=== PATIENT | male | born 1935 | race Caucasian/White ===

== ENCOUNTER 2017-05-12 17:00 | Inpatient (IN) ==
[2017-05-12] MEDS ORDERED: ASPIRIN PO STA (17:12)
[2017-05-12] MEDS ORDERED: NITROGLYCERIN 50 MG/D5W 50 MG/250 ML IV.SOLN ONE (17:25)
[2017-05-12] MEDS ORDERED: LASIX ONE (17:26)
[2017-05-12] MEDS ORDERED: LASIX IV ONE (17:30)
[2017-05-12] MEDS ORDERED: NITROGLYCERIN TOP ONE (17:31)
[2017-05-12 17:32] LABS: ALLEN TEST YES; BE -4.2 mmoll (-3.0-3.0); BLOOD TYPE ARTERIAL; DRAW SITE L RADIAL; METHB 0.8 % (0.0-1.5); PCO2(98.6) 38 mmHg (35-45); PO2(98.6) 80 mmHg (60-100); SAMPLE BLOOD; SAO2 96.7 % (95.0-100.0); THB 13.6 g/dL (11.5-17.4); pH(98.6) 7.35 (7.35-7.45)
[2017-05-12 17:34] LABS: MODALITY NRB
--- NOTE | 2017-05-12 17:36 | PROVIDER DOCUMENTATION ---
HPI-Respiratory General - General Chief Complaint: Shortness of Breath Stated Complaint: SOB Time Seen by Provider: 05/12/17 17:12 Source: patient, family Allergies/Adverse Reactions: Patient Allergies Allergy/AdvReac Type Severity Reaction Status Date / Time No Known Allergies Allergy Verified 02/16/17 12:10 Home Medications: Home Medication List Medication Instructions Recorded Confirmed Last Taken Type Atorvastatin Calcium [Lipitor] 10 mg PO DAILY 02/16/17 05/12/17 05/12/17 08:00 History Nitroglycerin Sl [Nitroglycerin] 1 tab SL PRN PRN 02/16/17 05/12/17 05/12/17 08: 00 History Nitroglycerin [Nitroglycerin Patch] 1 each TD DAILY 02/16/17 05/12/17 05/12/17 08:00 History Ranolazine E.r. [Ranexa] 1 tab PO BID 02/16/17 05/12/17 05/12/17 08:00 History Carvedilol [Coreg] 12.5 mg PO BID 05/12/17 05/12/17 05/12/17 08:00 History Cetirizine HCl [Zyrtec] 10 mg PO QHS 05/13/17 05/13/17 05/11/17 21:00 History - History of Present Illness-Resp Nature of Presenting Problem: 81 year old WM presents in moderate/severe respiratory distress, speaking in grunts, pale, RR in the 30-40's. per , pt has been short of breath since Monday night. reports pt has been unable to lay flat at night, sleeping and sitting up. she reports this afternoon it worsened, so she brought him in by POV. denies chest pain, fever, chills, NVD. Quality of Pain: reports: none Severity in ED: reports: moderate, severe Onset/Duration: reports: 3 days ago Timing: reports: still present, constant, getting worse Cough Quality/Degree: reports: no cough Review of Systems - Adult - REVIEW OF SYSTEMS - ADULT Constitutional: reports: no symptoms reported. denies: chills, fever Eyes: reports: no symptoms reported. denies: discharge, blurred vision, double vision Ears, Nose, Mouth & Throat: reports: no symptoms reported. denies: ear discharge, ear pain, nose pain, loose teeth, throat pain, throat swelling Cardiovascular: reports: see HPI, orthopnea, PND Respiratory: reports: see HPI, dyspnea on exertion, shortness of breath, wheezing Gastrointestinal: reports: no symptoms reported. denies: abdominal pain, diarrhea, nausea, vomiting Genitourinary: reports: no symptoms reported. denies: dysuria, hematuria, urgency Musculoskeletal: reports: no symptoms reported. denies: bone pain, joint pain, joint swelling, neck pain Integumentary: reports: no symptoms reported. denies: skin sores/ulcer Neurological: reports: no symptoms reported Psychiatric: reports: no symptoms reported Endocrine: reports: no symptoms reported Hematologic/Lymphatic: reports: no symptoms reported Allergic/Immunologic: reports: no symptoms reported All Other Systems: Reviewed and Negative Past History - Adult - PAST MEDICAL HISTORY-ADULT Review of Records: reports: Old Records Reviewed, Nursing Assessment Review, Medications Reviewed, Social history reviewed & non-contributory. Major Childhood Illnesses: reports: denies history Cardiovascular: reports: CAD, HTN Respiratory: reports: denies history Gastrointestinal: reports: denies history Obstetrical/Gynecological: reports: denies history Genitourinary: reports: denies history Musculoskeletal: reports: denies history Neurological: reports: denies history Endocrine/Immune: reports: denies history Other Conditions: reports: denies history - IMMUNIZATION STATUS Childhood Immunizations: See Nurse Assessment Flu Vaccine: See Nurse Assessment - FAMILY HISTORY Family History: reviewed, not pertinent Physical Exam-General - PHYSICAL EXAM-ADULT Initial Vital Signs Reviewed: Yes - CONSTITUTIONAL General Appearance: appears well, alert, moderate distress, severe distress, anxious, slow to respond. negative: no apparent distress, mild distress - EYES Eyes: pink conjunctivae - HEAD, EARS, NOSE, MOUTH & THROAT HENMT: normocephalic/atraumatic, moist mucous membranes - NECK Neck: non-tender, full range of motion, supple, normal inspection. negative: trachial deviation - RESPIRATORY Respiratory: respiratory distress, decreased breath sounds, accessory muscle use , rales, increased rate. negative: chest non-tender, lungs clear, normal breath sounds, no pleuratic chest pain, no respiratory distress, no accessory muscle use, crackles, rhonchi, stridor, wheezing - CARDIOVASCULAR Cardiovascular: normal peripheral pulses, JVD, tachycardia, gallop/S4, irregularly irregular. negative: regular rate, rhythm, no edema, no JVD (mild JVD), no murmur - GASTROINTESTINAL (ABDOMEN) Abdominal Exam: non tender, soft. negative: distended, guarding, rigid, rebound , tenderness, hepatomegaly, spleenomegaly - MUSCULOSKELETAL Back Exam: normal inspection Extremity: non-tender, pedal edema (+1/+2 pedal edema.). negative: normal inspection, no pedal edema, calf tenderness, swelling, tenderness Peripheral Pulses: radial (R): 3+, radial (L): 3+, dorsalis-pedis (R): 3+, dorsalis-pedis (L): 3+ - SKIN Integumentary: normal color, normal turgor, warm/dry - NEUROLOGIC Neurologic: grossly normal, no motor/sensory deficits - PSYCHIATRIC Psych/Mental Status: oriented x 3, anxious Progress - PLAN OF CARE/RESULTS Progress/Plan/Lab Results: Orders Category Date Time Status Admit - [facility] Routine AdmDCTranf 05/12/17 20:35 Ordered Activity - Up with Assistance ORDERED Care 05/12/17 20:35 Active Apply Mechanical Device [QM] ORDERED Care 05/12/17 20:35 Completed Cardiac Monitoring DIRECTED Care 05/12/17 17:13 Completed Daily Weights 0500 Care 05/12/17 20:35 Active Swan Cath Insertion ORDERED Care 05/12/17 17:30 Completed Intake and Output-Strict Q 8-HR ASSESS Care 05/12/17 20:35 Active Oxygen Therapy- ED Nursing DIRECTED Care 05/12/17 17:13 Completed Resuscitation Status Routine Care 05/12/17 18:18 Ordered Saline Loc DIRECTED Care 05/12/17 20:35 Completed Saline Loc NOW Care 05/12/17 17:13 Completed Vital Signs Order Q 8-HR ASSESS Care 05/12/17 20:35 Hold Z-Document. for Tele Applied ORDERED Care 05/12/17 20:35 Completed Heart Healthy Diet Diet 05/12/17 18:20 Active CHEST-PORTABLE [RAD] Routine Exams 05/13/17 08:00 Completed CHEST-PORTABLE [RAD] Stat Exams 05/12/17 17:13 Completed ABG [RESP] Routine Lab 05/12/17 17:27 Completed BASIC METABOLIC PANEL [CHEM] Routine Lab 05/13/17 05:20 Completed BLOOD CULTURE [BLDCUL] Stat Lab 05/12/17 18:33 Results CBC WITH DIFF [HEME] Routine Lab 05/13/17 05:20 Completed CBC WITH ELECTRONIC DIFF [HEME] Stat Lab 05/12/17 18:33 Completed CK PROFILE [SP CHEM] Q8H Lab 05/12/17 21:30 Completed CK PROFILE [SP CHEM] Q8H Lab 05/13/17 05:20 Completed CK PROFILE [SP CHEM] Q8H Lab 05/13/17 12:46 Completed CK PROFILE [SP CHEM] Stat Lab 05/12/17 18:33 Completed COMPREHENSIVE METABOLIC PANEL [CHEM] Stat Lab 05/12/17 18:33 Completed D-DIMER [CHEM] Stat Lab 05/12/17 18:33 Completed LACTATE, PLASMA [CHEM] Stat Lab 05/12/17 18:33 Completed MAGNESIUM [CHEM] Routine Lab 05/13/17 05:20 Completed MAGNESIUM [CHEM] Stat Lab 05/12/17 18:33 Completed PRO B-NATRIURETIC PEPTIDE Routine Lab 05/13/17 05:20 Completed PRO B-NATRIURETIC PEPTIDE Stat Lab 05/12/17 18:33 Completed PROTIME WITH INR [COAG] Stat Lab 05/12/17 18:33 Completed PTT [COAG] Stat Lab 05/12/17 18:33 Completed TROPONIN T Q8HR Lab 05/12/17 21:30 Completed TROPONIN T Q8HR Lab 05/13/17 05:20 Completed TROPONIN T Q8HR Lab 05/13/17 12:46 Completed TROPONIN T Stat Lab 05/12/17 18:33 Completed TSH Routine Lab 05/13/17 05:20 Completed ATORVAstatin [Lipitor] Med 05/13/17 09:00 Active 10 mg PO DAILY Acetaminophen [Tylenol] Med 05/12/17 20:35 Active 650 mg PO Q6H PRN PRN Aspirin Med 05/12/17 17:12 Discontinued 325 mg PO STAT STA Cyanocobalamin/FA/Pyridoxine [Foltx] Med 05/13/17 09:00 Active 1 each PO DAILY Furosemide [Lasix] Med 05/12/17 17:26 Discontinued 100 mg .ROUTE .STK-MED ONE Furosemide [Lasix] Med 05/12/17 17:30 Discontinued 100 mg IV NOW ONE Furosemide [Lasix] Med 05/13/17 01:30 Discontinued 80 mg IV Q8H Hydralazine [Apresoline] Med 05/12/17 18:26 Active 10 mg IV Q4H PRN PRN LISINOpril [Prinivil] Med 05/12/17 21:00 Discontinued 20 mg PO BID Nitroglycerin Med 05/12/17 17:31 Discontinued 2 inch TOP NOW ONE Nitroglycerin 50 mg/D5w Med 05/12/17 17:25 Discontinued 50 mg in 250 ml .ROUTE As Directed Nitroglycerin Sl [Nitroglycerin] Med 05/12/17 20:35 Active 0.4 mg SL PRN PRN Nitroglycerin [Nitroglycerin 0.1MG/Hr Patch] Med 05/13/17 09:00 Discontinued 1 each TD DAILY Ranolazine E.r. [Ranexa] Med 05/12/17 21:00 Active 500 mg PO BID Oxygen Device Routine Oth 05/12/17 20:35 Completed Telemetry [OM.EQ] Routine Oth 05/12/17 20:35 Active Echo Spec/Color Dop W/O Contra Routine Ther 05/13/17 08:00 Completed Transfer/Admit Order [TRANSFER] Routine Transfer 05/12/17 18:17 Completed Result Diagrams: 05/16/17 04:56 05/16/17 04:56 - XRAY 1 XRAY Study: Chest Impression: Abnormal (pulmonary edema per Dr. Madison) - CONSULTS/PCP/HOSPITALIST Notification #1 *Consult/PCP/Hospitalist*: Dr. Levy Time Discussed: 17:42 Reason/Comments: ICU Consult Disposition: Will see in ED, Admit - CHANGE OF SHIFT REPORT (ED Provider) Report Given and Care Transferred to:: Dr. Montalvo Time of Transfer: 18:14 Items Pending: Physician Consult/Arrival Departure - Departure Date of Disposition Decision: 05/12/17 Time of Disposition Decision: 17:32 DIAGNOSIS: Heart failure Disposition: ADMITTED INPATIENT 09 Certified Medical Emergency: Emergent Condition: Stable - Critical Care Note This patient required my direct & personal management of CC.: Yes Attestation - Physician/ SAUL Attestation Patient care was provided by Advanced Practice Provider:: Yes Advanced Practice Provider:: Pablo Victoria Advanced Practice Provider documentation review:: The Mid-level provider documentation, treatment plan and medical decision making was reviewed by the physician who agrees with all treatment and medical decision making by the MLP. The physician spent face to face time with patient:: Yes ([id number] Dr. Madison at bedside) Advanced Practice Provider documentation review:: Supervising physician onsite and consulted in the evaluation and care of this patient. The physician did have a face to face encounter with the patient.
--- NOTE | 2017-05-12 17:52 | Diag Imaging Result Doc PS360 ---
EXAM: CHEST-PORTABLE HISTORY: shortness of breath TECHNIQUE: AP portable erect at 1720 COMMENT: There is extensive interstitial and some alveolar opacity particularly in the perihilar regions bilaterally. There is blunting of the costophrenic angles. There are no previous studies. IMPRESSION: Florid pulmonary edema with small pleural effusions. Cardiomegaly. Electronically signed by Kasi Burciaga 05/12/2017 5:49 PM
[2017-05-12] MEDS ORDERED: APRESOLINE IV PRN (18:26)
[2017-05-12 18:47] LABS: BASO% 0.2 % (0.0-0.8); EOS# 0.13 X1000 (0.0-0.7); EOS% 0.8 % (0.0-10.0); HEMATOCRIT 37.5 % (42.0-52.0); HEMOGLOBIN 12.4 g/dL (14.0-18.0); LYMPH# 0.96 X1000 (1.2-3.4); LYMPH% 5.8 % (20.5-51.1); MANUAL DIFF NEEDED? NO; MCH 32.5 PG (27-31); MCHC 33.1 g/dL (33-37); MCV 98.4 FL (81-99); MONO# 1.04 X1000 (0.11-0.59); MONO% 6.3 % (1.7-9.3); MPV 8.9 FL (7.4-10.4); NEUT% 86.9 % (42.2-75.2); PLT 317 X1000 (130-400); RBC 3.81 XMIL (4.7-6.1)
[2017-05-12 18:54] LABS: INR 1.13; PTT 25.9 Seconds (22.0-36.0)
[2017-05-12 19:15] LABS: AGAP 15; ALBUMIN 3.9 g/dL (3.5-5.0); ALKALINE PHOSPHATASE 102 U/L (32-122); BUN 20 mg/dL (8-22); CALCIUM 8.9 mg/dL (8.8-10.2); CHLORIDE 100 mmol/L (98-107); CK PROFILE 169 U/L (24-204); COSMO 287; GOT 39 U/L (10-34); GPT 20 U/L (10-44); MAGNESIUM 1.8 mg/dL (1.5-2.7); SODIUM 140 mmol/L (136-145); TCO2 25 mmol/L (25-35); TOTAL BILIRUBIN 0.72 mg/dL (0.20-1.00); TOTAL PROTEIN 6.4 g/dL (6.3-8.3)
[2017-05-12] MEDS ORDERED: NITROGLYCERIN SL PRN (20:35)
[2017-05-12] MEDS ORDERED: TYLENOL PO PRN (20:35)
[2017-05-12] MEDS ORDERED: COREG CR PO SCH (21:00)
[2017-05-12] MEDS: RANEXA PO SCH (21:58)
[2017-05-12] MEDS: PRINIVIL PO SCH (21:59)
[2017-05-12] MEDS: COREG PO SCH (21:59)
[2017-05-12 22:43] LABS: CK INDEX 6.9 (0.0-2.5); CK-MB 33.94 ng/mL (0.0-5.0)
[2017-05-12] MEDS: LOVENOX SUBQ SCH (22:59)
[2017-05-13] MEDS: LASIX IV SCH ×4 (01:36→23:47)
[2017-05-13 06:01] LABS: MANUAL DIFF NEEDED? NO
[2017-05-13 06:04] LABS: BASO% 0.3 % (0.0-0.8); EOS# 0.09 X1000 (0.0-0.7); EOS% 0.6 % (0.0-10.0); HEMATOCRIT 37.3 % (42.0-52.0); HEMOGLOBIN 12.6 g/dL (14.0-18.0); IMM GRAN# 0.13 X1000 (0.0-0.04); IMM GRAN% 0.8 % (0.0-0.5); LYMPH# 1.52 X1000 (1.2-3.4); LYMPH% 9.6 % (20.5-51.1); MCH 32.2 PG (27-31); MCHC 33.8 g/dL (33-37); MCV 95.4 FL (81-99); MONO# 1.48 X1000 (0.11-0.59); MONO% 9.4 % (1.7-9.3); MPV 9.3 FL (7.4-10.4); NEUT% 79.3 % (42.2-75.2); PLT 315 X1000 (130-400); RBC 3.91 XMIL (4.7-6.1)
[2017-05-13 06:37] LABS: AGAP 14; BUN 18 mg/dL (8-22); CALCIUM 9.2 mg/dL (8.8-10.2); CHLORIDE 98 mmol/L (98-107); COSMO 286; MAGNESIUM 1.6 mg/dL (1.5-2.7); SODIUM 142 mmol/L (136-145); TCO2 30 mmol/L (25-35)
[2017-05-13 06:49] LABS: CK INDEX 6.5 (0.0-2.5); CK-MB 20.22 ng/mL (0.0-5.0)
--- NOTE | 2017-05-13 07:12 | Diag Imaging Result Doc PS360 ---
EXAM: CHEST-PORTABLE HISTORY: Heart failure TECHNIQUE: AP portable at 0500 COMMENT: There is bilateral interstitial and alveolar pulmonary edema. Considering differences in inspiration this has not changed significantly since the previous study of 05/12/2017. There may be small pleural effusions. IMPRESSION: Pulmonary edema. Electronically signed by Kasi Burciaga 05/13/2017 7:10 AM
[2017-05-13] MEDS ORDERED: NITROGLYCERIN 0.1MG/HR PATCH TD SCH (09:00)
[2017-05-13] MEDS: ROCEPHIN 1 GM/NS 1 GM/50 ML IVPB IV SCH (09:25)
[2017-05-13] MEDS: FOLTX PO SCH (09:25)
[2017-05-13] MEDS: RANEXA PO SCH ×2 (09:25→20:26)
[2017-05-13] MEDS: PRINIVIL PO SCH (09:25)
[2017-05-13] MEDS: KLOR-CON PO SCH ×2 (09:25→20:26)
[2017-05-13] MEDS: LIPITOR PO SCH (09:25)
[2017-05-13] MEDS: COREG PO SCH ×2 (09:25→20:27)
--- NOTE | 2017-05-13 09:42 | HISTORY AND PHYSICAL ---
HISTORY OF PRESENT ILLNESS: Mr. Polanco was admitted on 05/12/2017 in the evening. He stated that for a couple of days he has noticed increased shortness of breath and now was having more trouble and struggling to breathe. He came to the emergency room where, indeed, he had significant hypoxia, and he was put on BiPAP. Blood gases on arrival: pH was 7.35, pCO2 of 38, PO2 was 80, but that was after he is already on 100% FiO2. He is using extra thoracic muscles for breathing difficulty, moving air, and significant orthopnea which he has had for a couple of days. He denies any specific chest pain. He has had chronic angina with exertion. It usually expresses itself between the shoulder blades. PAST MEDICAL HISTORY: 1. Coronary artery disease. He started having chest pain and shortness of breath with exertion back in 1977. He underwent a stress test and eventually had a heart catheterization done in [place] and was treated at [place] and ended up having a 1 vessel to the LAD, I believe a venous graft in 1977. He quit smoking at that time. Prior to that, he smoked quite a bit. He did pretty well until the mid , and he started having chest pain, intrascapular pain again and it felt to be consistent with angina. He had another heart catheterization. They told him he had small vessel disease and needed to treat him medically. I think he has had another heart catheterization in the last 10 years, and I think Dr. Kaur performed that and, again, I think there was no surgical therapy available and, so, he has had stable angina chest pain with exertion predictable since that time. 2. Years ago, he had a duodenal ulcer. He underwent a Billroth II and, since that time, he has had postoperative dumping syndrome which we tried various things with very little relief. 3. I believe he has had his gallbladder out. ALLERGIES: No known drug allergies. FAMILY HISTORY: His father, I think, had laryngeal cancer. REVIEW OF SYSTEMS: No weight gain or loss. No fever or chills.HEENT: Unremarkable. Respiratory: Increased work of breathing as above. Increased orthopnea. Very uncomfortable. Cardiovascular: As above. Gastrointestinal and genitourinary: No gross hematuria or dysuria. Musculoskeletal/Neurologic: No focal complaints. Oncologic/hematologic: No significant history other than postoperative dumping syndrome. PHYSICAL EXAMINATION: GENERAL: Well-developed, well-nourished, white male. VITAL SIGNS: Temperature 96.0 degrees, pulse 76, respirations 22, blood pressure 140/76. LUNGS: Decreased breath sounds lower halves. Rales at the margin. Soft S3 appreciated. Prolonged expiratory phase even at this point. He is on BiPAP. CARDIOVASCULAR: Regular rate without murmur or S3. ABDOMEN: Soft. SKIN: Warm and dry. LABORATORY DATA: White count 16,540. Hematocrit 37, platelet count 312,000. Sodium 140, potassium 4.0, chloride 100, bicarb 25. BUN 20, creatinine 1.1. Magnesium 1.8. CPK initially was 169. Troponin was 0.240. ProBNP 4359. PT was 12. PTT was 25. Blood gas: pH was 7.35, pCO2 of 38, PO2 80. Lactate level was 4.0. Chest x-ray: pulmonary edema with small pleural effusions. Cardiomegaly appreciated. ASSESSMENT AND PLAN: 1. Acute congestive heart failure. Suspect related to increased afterload and possible underlying cardiac ischemia. We have given him some Lasix. We will continue to diurese him. We will add VIKKI inhibitor to his regimen. We will check serial cardiac enzymes. This may be a myocardial mismatch oxygen supply and mismatch. I would like to get Cardiology involved as well and put him on Lovenox for now. He is already on nitrates and beta blockade and aspirin. 2. History of coronary artery disease, as above. Small vessel disease by report. I think we will be left to try and adjust his medication and adjust his pre and post load and maximize his medical therapy. 3. 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 4. Note: He complained about the pneumatic stockings causing some muscle spasm, so I will change him to regular. I also note he has got an elevated white count. He did have a little bit of fever, so, I am going to cover him for possible respiratory infection. I do not see this radiographically but I will put him on Rocephin 1 g daily. cc: Olivier Levy MD
--- NOTE | 2017-05-13 09:49 | PROGRESS NOTE ---
DATE: 05/13/2017 SUBJECTIVE: He is breathing better, sitting up in a chair. He is on nasal cannula at the present time, but he is able to come off BiPAP. He denies any specific chest pain, but he said he was hurting so bad last night that he had trouble breathing and he is not sure, but he is much more comfortable. He did have muscle spasm in his legs, and I think that is from the pneumatic stockings. They were very uncomfortable. OBJECTIVE: Vital Signs: His temperature was 100.2 degrees, pulse 80, respirations 20, blood pressure 132/67. HEENT: Pupils were equal, round. Lungs are clear in all lung pickard. Cardiovascular: Regular rhythm and rate without murmur or S3. Abdomen is soft, nontender, nondistended. Positive bowel sounds. No hepatosplenomegaly. Extremities without clubbing, cyanosis, or edema. He has a venectomy scar on the right medial lower leg. ASSESSMENT AND PLAN: 1. Underlying coronary artery disease. Troponin elevated. Nonspecific ST-segment changes in lateral inferior leads and suspect ischemic cardiomyopathy. He seems to be responding to diuresis. We will continue the Lasix, supplement his potassium. His magnesium looks good. His renal function is good. 2. Underlying coronary artery disease, aware. 3. Status post Billroth-II with dumping syndrome. I have him on a healthy heart diet. 4. Muscle cramps. We will stop his pneumatic stockings. cc: Olivier Levy MD
[2017-05-13] MEDS: MAG-OX PO SCH ×2 (10:00→20:27)
[2017-05-13] MEDS: LOVENOX SUBQ SCH ×2 (10:01→20:25)
[2017-05-13] MEDS: ALDACTONE PO SCH (11:58)
[2017-05-13] MEDS: NITROGLYCERIN TOP SCH ×3 (11:58→23:47)
[2017-05-13] MEDS: CAPOTEN PO SCH ×3 (11:58→20:27)
[2017-05-13] MEDS: NATRECOR 1.5 MG in NS 250 ML IV SCH (12:00)
--- NOTE | 2017-05-13 13:06 | CONSULTATION ---
DATE OF CONSULTATION: 05/13/2017 REQUESTING PHYSICIAN: Olivier Levy MD. REASON FOR CONSULTATION: Shortness of breath, myocardial infarction . HISTORY: Mr. Polanco is a pleasant 81-year-old male patient of Dr. Levy who normally follows with Dr. Lei Soto at [facility] in [place]. The patient says that for the past several months he has noticed progressive weakness and loss of stamina. He does have a pattern of stable angina pectoris. For the past 3 or 4 days, he has noted increasing exertional dyspnea and on Monday he got to the point where he felt very short of breath and called for help, and he was instructed to come to the emergency room. He was seen in the ER at about 5:13 p.m. A chest x -ray was done and showed florid pulmonary edema. Blood work at that time showed a proBNP level of 4359, which subsequently has risen up to 6327. His initial cardiac enzymes showed CK 169. Subsequently, the CK went up to 489 and then to 313 units. His CK MB fraction initially was negative, then had risen to 33.94 ng/mL, and then the last one was 20.22 ng/mL. His troponin levels were initially 0.240, subsequently 2.0, and then 2.210. His EKG at the time of initial encounter had shown sinus rhythm with diffuse nonspecific ST-T abnormalities. Lots of artifacts were noted on the 1st EKG. The 2nd EKG at 10: 34 p.m. showed sinus rhythm with nonspecific ST-T changes in the lateral leads that could be ischemic. The 3rd EKG done at 6:12 this morning also showed sinus rhythm with diffuse ST depression in lateral leads V4-V6. The patient has been given Lasix. He is breathing more comfortably. He is feeling somewhat better. PAST MEDICAL HISTORY: Positive for severe coronary heart disease. He had coronary bypass surgery x1 in 1977 at [facility]. He has been followed over the course of many years by Dr. Levy and also his vacuum form operator at the [facility] in [place]. At some point I was involved in his care about 10 years ago. They asked me to do a heart catheterization that showed that he had severe 3-vessel disease with a patent vein graft to the LAD and multiple stenoses in the circumflex, right coronary artery, and mid LAD. Medical therapy was recommended at that time. The patient says that at about 5 years ago they did a followup catheterization in [place] and they also recommended medical therapy. He has a previous history of peptic ulcer and he has had partial gastrectomy in the past with a Billroth II type of operation. He has had hyperlipidemia and hypertension. 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 Alexander has performed some reconstructive surgery there recently. The patient was just seen by his vacuum form operator, Dr. Lei Soto, about a week ago and he was found in a stable condition at that time. PAST SURGICAL HISTORY: As mentioned, bypass 1 time in 1977 and gastric surgery. FAMILY HISTORY: Noncontributory. HOME MEDICINES: 1. Zyrtec 10 mg at bedtime. 2. Carvedilol 12.5 twice a day. 3. Ranexa 1 tablet twice a day. 4. Atorvastatin 10 daily. ALLERGIES: Negative, REVIEW OF SYSTEMS: Progressive fatigue, loss of stamina. His chronic angina pectoris has not changed very much. PHYSICAL EXAMINATION: VITAL SIGNS: Today, blood pressure 119/59, temperature 98.4, pulse 78, respirations 20. GENERAL: He is awake, alert, in no distress. HEENT/NECK: Slightly prominent jugular veins. There are no cervical bruits. CHEST: Diminished breath sounds at the bases with some crepitations bilaterally. HEART: Sounds are regular and rhythmic. There is an apical systolic murmur of 1-2 over 6. Questionable 4th heart sound. ABDOMEN: Nontender. No hepatomegaly noted. There is a scar of sternotomy in the chest. EXTREMITIES: Palpable pulses bilaterally with trace ankle edema. NEUROLOGIC: Follows commands. Moves all 4 extremities. Cranial nerves normal. LABORATORY AND IMAGING: Echocardiogram has been done and the results are pending. IMPRESSIONS: 1. Patient presented with sudden onset of severe dyspnea with abnormal EKG, elevated cardiac enzymes, abnormal chest x-ray suggesting pulmonary edema, and a non-ST myocardial infarction . 2. Severe coronary heart disease, s/p CABG with multivessel disease diagnosed several years ago, on medical therapy. 3. Chronic angina pectoris pattern, functional class III. 4. History of peptic ulcer in the remote past. 5. Acute systolic congestive heart failure. RECOMMENDATIONS: 1. At this point in time, we will offer supportive care with Lovenox, aspirin, and Plavix. We will give him nitro paste, low-dose beta afsaneh, low-dose VIKKI inhibitors. To stabilize the situation, I may want to add spironolactone because his potassium is low. Further advice will depend on his clinical course. We will try IV Natrecor to improve diuresis. 2. I believe this patient may require a followup heart catheterization to make sure that his vein graft to the left anterior descending is still patent. 3. We will try to get records from [place]. Thank you again for the opportunity to participate in his evaluation. Best regards, cc: MD Olivier Fine MD [email or web address]
--- NOTE | 2017-05-13 18:12 | ECHO REPORT ---
ORDER DATE: 05/13/2017 INTERPRETING PHYSICIAN: Dr. Kaur REQUESTING PHYSICIAN: CLINICAL INDICATIONS: An 81-year-old male with myocardial infarction, coronary heart disease, congestive heart failure. M-MODE MEASUREMENTS: Right ventricle: 2.9 cm. Left ventricle end diastole: 5.0 cm. Left ventricle end systole: 3.8 cm. Posterior wall: 1.0 cm. Interventricular septum: 1.0 cm. Left atrium: 4.7 cm. Aortic root: 3.4 cm. SUMMARY OF 2-DIMENSIONAL IMAGING: The study was somewhat difficult. The left ventricular chamber appears to be moderately enlarged. The global ejection fraction appears to be epqx-bx-xkbsnsdjrt impaired. Ejection fraction is estimated to be in the range of 40-45%. There is severe impairment of the inferior wall as well as the posterior lateral wall. The basal interventricular septum is also compromised. That would suggest ischemia or infarction within the territory of either a dominant right coronary artery or a dominant circumflex. The aortic valve shows sclerosis of the cusp. Color flow mapping indicates a uwwh-th-prilgxxj degree of regurgitation. The left atrium is moderately dilated. The tricuspid valve shows no significant regurgitation. The inferior vena cava is not dilated. Pulmonary pressure is probably normal. The pulmonic valve looks normal with a mild degree of regurgitation. The mitral valve shows a omhk-gw-pckkctaz degree of regurgitation. Pulse wave Doppler of mitral inflow is normal. Tissue Doppler of septal and lateral mitral annulus averages 7.5 cm per second. There is no significant diastolic dysfunction. Pulmonary venous flow is normal. IMPRESSION: In summary, this study shows: 1. Moderately enlarged left ventricle with dpkk-om-pxoajfvt impairment of systolic function. Ejection fraction 40-45% with significant impairment of the inferior wall and to a lesser degree the posterior lateral segment. That is consistent with coronary ischemic disease. 2. Lnah-dr-tepxcwhv degree of mitral and aortic regurgitation. 3. No definite diastolic dysfunction. 4. Pulmonary pressure appears to be grossly within normal range. A left pleural effusion was noted. Clinical correlation recommended. cc: MD Olivier Fine MD
[2017-05-13] MEDS: POTASSIUM CHLORIDE 20% LIQUID PO SCH (20:27)
[2017-05-14] MEDS: LOVENOX SUBQ SCH ×3 (00:45→20:10)
[2017-05-14] MEDS: NITROGLYCERIN TOP SCH ×4 (04:54→23:25)
[2017-05-14] MEDS: CAPOTEN PO SCH ×3 (04:54→20:08)
[2017-05-14 06:09] LABS: AGAP 16; BUN 21 mg/dL (8-22); CALCIUM 9.1 mg/dL (8.8-10.2); CHLORIDE 97 mmol/L (98-107); COSMO 291; MAGNESIUM 1.8 mg/dL (1.5-2.7); POTASSIUM 3.4 mmol/L (3.5-5.1); SODIUM 144 mmol/L (136-145); TCO2 31 mmol/L (25-35)
--- NOTE | 2017-05-14 07:06 | Diag Imaging Result Doc PS360 ---
EXAM: CHEST-PORTABLE HISTORY: CHF TECHNIQUE: AP portable at 0500 COMMENT: There are bilateral pleural effusions. There is cardiomegaly. There is interstitial and alveolar pulmonary edema. The inspiration is less optimal than on 05/13/2017. Otherwise has been no significant change. IMPRESSION: Pulmonary edema pleural effusions and cardiomegaly. Electronically signed by Kasi Burciaga 05/14/2017 7:04 AM
--- NOTE | 2017-05-14 08:17 | PROGRESS NOTE ---
DATE: 05/14/2017 SUBJECTIVE: Mr. Polanco is feeling better. He did not sleep much last night but he did not have any more of his leg cramping. Bowels had moved yesterday. Breathing is better. No chest pain. PHYSICAL EXAMINATION: Vital Signs: Temperature 98 degrees, pulse 78, respirations 18, blood pressure 110/63. Lungs: Clear anterolateral. Cardiovascular Examination: Regular rhythm and rate without murmur or S3. Abdomen: Soft. Skin: Warm and dry. No pedal edema. Is and Os: Urine output is 4.5 L. LAB: White count 15,810, hematocrit 37, platelet count 315,000. Electrolytes: Sodium 144, potassium 3.4, chloride 97, BUN is 21, creatinine 1.1. His troponin has gone down to 0.78. Chest x-ray, pulmonary edema, pleural effusions, and cardiomegaly, appears to have improved. ASSESSMENT AND PLAN: 1. Congestive heart failure, pulmonary edema, improving clinically and I think improving radiographically as well. Continue to diurese. He has VIKKI inhibitor. He was already on a beta blockade with Coreg low dose and we have him on Lovenox. 2. Non Q-wave myocardial infarction. He is on nitroglycerin. He has low-dose beta blockade, on aspirin, and he is on Lovenox. Afterload, preload look to be optimal. He is diuresing well. Serum creatinine is 1.1. Electrolytes, potassium a little low. Magnesium is 1.8. We will continue to supplement the potassium. May give him an extra dose of intravenous potassium today. 3. Swan catheter in place. We will take that out tomorrow. He is just not able to get up and run to the bathroom. cc: Olivier Levy MD
[2017-05-14] MEDS: LIPITOR PO SCH (08:38)
[2017-05-14] MEDS: COREG PO SCH ×2 (08:38→20:08)
[2017-05-14] MEDS: RANEXA PO SCH ×2 (08:38→20:08)
[2017-05-14] MEDS: POTASSIUM CHLORIDE 20% LIQUID PO SCH ×2 (08:38→20:06)
[2017-05-14] MEDS: KLOR-CON PO SCH ×2 (08:38→20:06)
[2017-05-14] MEDS: POTASSIUM CHLORIDE 20 MEQ/SWI 20 MEQ/100 ML IVPB IV SCH ×2 (08:38→09:40)
[2017-05-14] MEDS: PLAVIX PO SCH (08:38)
[2017-05-14] MEDS: ALDACTONE PO SCH (08:38)
[2017-05-14] MEDS: MAG-OX PO SCH ×2 (08:38→20:06)
[2017-05-14] MEDS: ASPIRIN PO SCH (08:38)
[2017-05-14] MEDS: FOLTX PO SCH (08:38)
[2017-05-14] MEDS: ROCEPHIN 1 GM/NS 1 GM/50 ML IVPB IV SCH (08:44)
[2017-05-14] MEDS: LASIX IV SCH ×2 (10:24→23:25)
--- NOTE | 2017-05-14 13:17 | PROGRESS NOTE ---
DATE: 05/14/2017 CHIEF COMPLAINT: Shortness of breath. SUBJECTIVE: Mr. Polanco is breathing more comfortably today. He has not had any chest pain. Overall he feels that he has improved. OBJECTIVE: His blood pressure today is 95/52, temperature 97.4, pulse 73, respirations 16. He is eating lunch, sitting upright, in no distress. HEENT is unremarkable. Chest: Diminished breath sounds at bases. There is some crepitans bilaterally. Heart sounds are regular and rhythmic. I do not hear any gallop or murmur. Abdomen: Nontender. Extremities: No edema. Pulses are diminished. Neurologic: Follows commands. Cranial nerves are normal. DIAGNOSTIC DATA: Today, sodium is 144, potassium 3.4, BUN is 21, creatinine 1.1 , magnesium is 1.8. His CK has come down to 71. Troponin has also come down to 0.78. His EKG shows no acute ischemic changes, sinus rhythm. IMPRESSION: 1. The patient presented with a aqy-JF-qkojzffkx myocardial infarction and acute congestive heart failure, systolic. This is improving clinically on present medicines. 2. History of prior coronary bypass surgery. severe multivessel coronary artery disease. 3. History of peptic ulcer. RECOMMENDATIONS: At this point in time, I would suggest to continue all present therapies as outlined. I would continue low dose beta afsaneh, low dose VIKKI inhibitor, optimize his magnesium and potassium as needed. We will discuss with him and the family what else to do once he is really in a very stable situation. cc: MD Olivier Fine MD MTDD
[2017-05-14] MEDS: NATRECOR 1.5 MG in NS 250 ML IV SCH (14:06)
[2017-05-14] MEDS: ZYRTEC PO SCH (23:25)
--- NOTE | 2017-05-15 06:01 | EKG Report ---
Test Performed on : 05/12/2017 5:06:00 PM Test Reason : Re-Ordered/CP Blood Pressure : / mmHG Vent. Rate : 126 BPM Atrial Rate : 125 BPM P-R Int : 000 ms QRS Dur : 078 ms QT Int : 298 ms P-R-T Axes : 000 065 113 degrees QTc Int : 431 ms Accelerated Junctional rhythm. ST \T\ T wave abnormality, consider lateral ischemia Abnormal ECG No previous ECGs available Unconfirmed Result
--- NOTE | 2017-05-15 06:07 | EKG Report ---
Test Performed on : 05/14/2017 05:51:37 AM Test Reason : ACUTE NON ST [place] Blood Pressure : / mmHG Vent. Rate : 080 BPM Atrial Rate : 080 BPM P-R Int : 154 ms QRS Dur : 074 ms QT Int : 384 ms P-R-T Axes : 025 -07 -43 degrees QTc Int : 442 ms Normal sinus rhythm. Possible Left atrial enlargement Left ventricular hypertrophy with repolarization abnormality Abnormal ECG When compared with ECG of 13-MAY-2017 06:12, (Unconfirmed) Nonspecific ST and T wave abnormality Inferior leads Nonspecific ST depression lateral leads Confirmed by Micha Briceño DO ([id number]) on 05/18/2017 6:53:45 AM
--- NOTE | 2017-05-15 06:08 | EKG Report ---
Test Performed on : 05/12/2017 10:34:56 PM Test Reason : Re-Ordered/CP Blood Pressure : / mmHG Vent. Rate : 092 BPM Atrial Rate : 092 BPM P-R Int : 222 ms QRS Dur : 076 ms QT Int : 334 ms P-R-T Axes : 027 015 270 degrees QTc Int : 413 ms Sinus rhythm. with 1st degree AV block. Possible Left atrial enlargement ST \T\ T wave abnormality, consider lateral ischemia Abnormal ECG When compared with ECG of 12-MAY-2017 17:29, (Unconfirmed) Previous ECG has undetermined rhythm, needs review Confirmed by Micha Briceño DO ([id number]) on 05/16/2017 7:11:45 AM
[2017-05-15] MEDS: CAPOTEN PO SCH ×3 (06:26→20:58)
--- NOTE | 2017-05-15 06:26 | EKG Report ---
Test Performed on : 05/13/2017 06:12:32 AM Test Reason : Increased troponin levels(Repeat) Blood Pressure : / mmHG Vent. Rate : 084 BPM Atrial Rate : 084 BPM P-R Int : 162 ms QRS Dur : 076 ms QT Int : 352 ms P-R-T Axes : 021 011 153 degrees QTc Int : 415 ms Normal sinus rhythm. Possible Left atrial enlargement ST \T\ T wave abnormality, consider lateral ischemia Abnormal ECG When compared with ECG of 12-MAY-2017 22:34, (Unconfirmed) NM interval has decreased Inverted T waves have replaced nonspecific T wave abnormality in Anterior leads Nonspecific ST depression are no longer evident in high-lateral leads 1 and AVL Confirmed by Micha Briceño DO ([id number]) on 05/16/2017 7:14:14 AM
[2017-05-15] MEDS: NITROGLYCERIN TOP SCH ×4 (06:27→22:12)
--- NOTE | 2017-05-15 07:27 | EKG Report ---
Test Performed on : 05/15/2017 07:09:54 AM Test Reason : ACUTE NON ST [place] Blood Pressure : / mmHG Vent. Rate : 085 BPM Atrial Rate : 085 BPM P-R Int : 148 ms QRS Dur : 076 ms QT Int : 400 ms P-R-T Axes : 027 -04 111 degrees QTc Int : 476 ms Normal sinus rhythm. Possible Left atrial enlargement Nonspecific ST and T wave abnormality Prolonged QT Abnormal ECG When compared with ECG of 14-MAY-2017 05:51, (Unconfirmed) Confirmed by Micha Briceño DO ([id number]) on 05/18/2017 7:09:01 AM
--- NOTE | 2017-05-15 08:51 | PROGRESS NOTE ---
DATE: 05/15/2017 SUBJECTIVE: He had a better night, slept pretty well. He needed to take Zyrtec at home. He had 1 last night. No chest pain. Breathing is comfortable. He feels like his ears are a little full and a little bit swimmy-headed today. PHYSICAL EXAMINATION: Vital Signs: Temperature 97.7 degrees, pulse 90, respirations 19, blood pressure 122/68. Blood pressure range has been from 98-139/62-75. CVP is less than 6 cm. Lungs: Clear anterolateral. Cardiovascular Examination: Regular rhythm and rate without murmur or S3. Abdomen: Soft. Extremities: No pedal edema. Is and Os: Urine output was over 5 L. LAB: Reviewed from the . CBC: White blood cell count was 15,810, hematocrit 37, platelet count 315,000. Chemistry: Sodium 144, potassium 3.4, chloride 97, BUN 21, creatinine 1.1. He also had an EKG this morning. EKG, normal sinus rhythm. He has no suspicious ST-segments, still nonspecific ST in the lateral leads which are less pronounced. ASSESSMENT AND PLAN: 1. Non-Q-wave myocardial infarction, improving. Left ventricular dysfunction which is improving with diuresis. Breathing much better. We will get him up and ambulate, and work on his strength. 2. History of coronary artery disease, status post coronary artery bypass. 3. History of peptic ulcer, status post Billroth-II. 4. Echocardiogram was done on the , read by Dr. Kaur. Moderately enlarged left ventricle with mild to moderate impairment of systolic function. Ejection fraction 40-45%. Significant impairment in inferior wall and to a lesser degree, posterolateral segment, consistent with his coronary artery disease. No definite diastolic dysfunction. Pulmonary pressures within normal range. Did not see any significant valvular dysfunction. 5. We will take out his Swan catheter. Try to wean him off his O2. Begin physical therapy to start working on his strength. Hopefully, can be discharged in the next 48 hours. We will follow up on his electrolytes again tomorrow and another chest x-ray. His last chest x-ray was yesterday and pulmonary edema and pleural effusions, and cardiomegaly is still noted. cc: Olivier Levy MD
--- NOTE | 2017-05-15 08:53 | PROGRESS NOTE ---
DATE: 05/15/2017 CHIEF COMPLAINT: Shortness of breath. SUBJECTIVE: Mr. Polanco is feeling much better. He has not had any more chest pains. His breathing is more comfortable. His EKG today shows sinus rhythm, left atrial enlargement, rate 85, minor nonspecific ST change. OBJECTIVE: Vital signs today show blood pressure of 122/68, temperature 97.7, pulse 91. He is awake, alert and oriented, no distress. HEENT is unremarkable. Chest fairly clear to auscultation and percussion. Heart sounds regular and rhythmic. I do not hear gallop or murmur. Abdomen is nontender. Extremities show decreased pulses, no edema. Neurologic: Follows commands. Moves all 4 extremities. DIAGNOSTIC DATA: Blood work is pending. Telemetry shows sinus rhythm. IMPRESSION: 1. The patient presented with acute ldr-GR-ubzarkvhz myocardial infarction complicated by acute systolic heart failure. 2. Severe coronary artery disease, status post bypass. 3. History of peptic ulcer. RECOMMENDATIONS: At this point in time, I would probably continue all of the ongoing therapies including Natrecor, Ranexa, low dose VIKKI inhibitor, low dose beta afsaneh. We will continue Lovenox. Further advice will be forthcoming. Thank you for the opportunity to participate in his evaluation. Best regards. cc: MD Olivier Fine MD
[2017-05-15] MEDS: ASPIRIN PO SCH (08:57)
[2017-05-15] MEDS: LIPITOR PO SCH (08:57)
[2017-05-15] MEDS: POTASSIUM CHLORIDE 20% LIQUID PO SCH ×2 (08:57→20:59)
[2017-05-15] MEDS: FOLTX PO SCH (08:57)
[2017-05-15] MEDS: MAG-OX PO SCH ×2 (08:57→20:59)
[2017-05-15] MEDS: ALDACTONE PO SCH (08:57)
[2017-05-15] MEDS: COREG PO SCH ×2 (08:57→20:59)
[2017-05-15] MEDS: RANEXA PO SCH ×2 (08:57→21:00)
[2017-05-15] MEDS: ROCEPHIN 1 GM/NS 1 GM/50 ML IVPB IV SCH (08:57)
[2017-05-15] MEDS: PLAVIX PO SCH (08:57)
[2017-05-15 09:22] LABS: AGAP 15; BUN 22 mg/dL (8-22); CALCIUM 9.2 mg/dL (8.8-10.2); CHLORIDE 95 mmol/L (98-107); COSMO 280; MAGNESIUM 2.1 mg/dL (1.5-2.7); POTASSIUM 4.4 mmol/L (3.5-5.1); SODIUM 138 mmol/L (136-145); TCO2 28 mmol/L (25-35)
[2017-05-15] MEDS: LASIX IV SCH ×2 (10:13→22:12)
[2017-05-15] MEDS: LOVENOX SUBQ SCH ×2 (10:14→22:12)
[2017-05-15] MEDS: NATRECOR 1.5 MG in NS 250 ML IV SCH (17:15)
[2017-05-15] MEDS: ZYRTEC PO SCH (21:00)
[2017-05-16] MEDS: CAPOTEN PO SCH ×3 (05:01→21:35)
[2017-05-16] MEDS: NITROGLYCERIN TOP SCH ×4 (05:02→22:55)
[2017-05-16 05:35] LABS: MANUAL DIFF NEEDED? NO
[2017-05-16 05:39] LABS: BASO% 0.5 % (0.0-0.8); EOS# 0.78 X1000 (0.0-0.7); EOS% 5.5 % (0.0-10.0); HEMATOCRIT 40.4 % (42.0-52.0); HEMOGLOBIN 13.6 g/dL (14.0-18.0); IMM GRAN# 0.12 X1000 (0.0-0.04); IMM GRAN% 0.8 % (0.0-0.5); LYMPH# 2.39 X1000 (1.2-3.4); LYMPH% 16.9 % (20.5-51.1); MCHC 33.7 g/dL (33-37); MCV 95.1 FL (81-99); MONO% 8.5 % (1.7-9.3); MPV 9.3 FL (7.4-10.4); NEUT% 67.8 % (42.2-75.2); PLT 411 X1000 (130-400); RBC 4.25 XMIL (4.7-6.1)
[2017-05-16 06:01] LABS: CALCIUM 9.2 mg/dL (8.8-10.2); POTASSIUM 4.5 mmol/L (3.5-5.1)
--- NOTE | 2017-05-16 07:32 | EKG Report ---
Test Performed on : 05/16/2017 06:48:39 AM Test Reason : ACUTE NON ST [place] Blood Pressure : / mmHG Vent. Rate : 080 BPM Atrial Rate : 080 BPM P-R Int : 154 ms QRS Dur : 080 ms QT Int : 398 ms P-R-T Axes : 020 -03 111 degrees QTc Int : 459 ms Normal sinus rhythm. Possible Left atrial enlargement Nonspecific ST and T wave abnormality Abnormal ECG When compared with ECG of 15-MAY-2017 07:09, (Unconfirmed) Leftward axis Confirmed by Micha Briceño DO ([id number]) on 05/20/2017 3:19:22 PM
--- NOTE | 2017-05-16 08:07 | PROGRESS NOTE ---
DATE: 05/16/2017 SUBJECTIVE: He had a good night, slept real well. Breathing comfortably. No chest pain. Swan catheter still in place. PHYSICAL EXAMINATION: Vital Signs: Temperature 98.2 degrees, pulse 82, respirations 18. Blood pressure 105/55. Lungs: Are clear anterolateral. Cardiovascular Examination: Regular rhythm and rate without murmur or S3. Abdomen: Soft. Skin: Is warm and dry. Is and Os: Urine output 3000 mL. LABORATORIES: Lab reviewed. White count 14,180, hematocrit is 40, platelet count 411,000. Sodium 139, potassium 4.5, chloride 97, BUN 31, creatinine 1.3. He had an EKG this morning. We will get a PA and lateral chest x-ray as well. His EKG this morning, normal sinus rhythm, possible left atrial enlargement, nonspecific ST segments but unremarkable. ASSESSMENT AND PLAN: 1. The patient presented with an acute non-ST elevation myocardial infarction complicated by acute systolic heart failure. 2. Acute systolic heart failure. Responded to diuresis and compensation looks good. 3. Severe coronary artery disease, status post bypass. 4. 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 5. Seems to be doing much better. We will discontinue his Swan catheter. Check a PA chest x- ray. Try and improve his strength. Hopefully, he can be discharged soon. His electrolytes look good. Serum creatinine did bump up to 1.3. Aware. cc: Olivier Levy MD
--- NOTE | 2017-05-16 08:18 | PROGRESS NOTE ---
DATE: 05/16/2017 CHIEF COMPLAINT: Shortness of breath. SUBJECTIVE: Mr. Polanco is feeling definitely better as far as his breathing. He is feeling very weak. He has not had any chest pain, no palpitations. He has been eating his meals without difficulty. OBJECTIVE: Vital signs: Blood pressure 105/55, temperature 98.2, pulse 82, respirations 18. General: He is awake, alert, oriented, in no distress. HEENT: No jugular venous distention. Chest: Shows symmetrical breath sounds. I do not hear any crepitance today. Cardiac: Heart sounds are regular and rhythmic. I do not hear any gallop or murmur. Abdomen: Nontender, soft, no masses, no hepatomegaly. Extremities: Good pulses, no edema. Neurological: Follows commands, moves four extremities. Cranial nerves are normal. BLOOD WORK: Sodium 139, potassium 4.5, BUN 31, creatinine 1.3, chloride 97, carbon dioxide 29. IMPRESSION: 1. Patient who has presented with acute afj-SK-jjlhploav myocardial infarction, probably involving the territory of his circumflex coronary artery. He has developed acute systolic heart failure as a consequence of that. Clinically, he appears to have stabilized with present therapy including Natrecor, IV furosemide. 2. History of severe coronary heart disease, prior bypass surgery. RECOMMENDATION: At this point in time, we will switch his medicines around a little bit. I am going to make his Lasix probably just once a day, and we will continue the other medicines as stated. We will keep on checking his electrolytes. Will get him out of bed today. If things are going well, we may think about possibly discharging him home by the end of tomorrow or early on . He might require a followup heart catheterization chiefly to make sure that his vein graft to the LAD has not become compromised, because that is really his only lifeline. Further advice will be forthcoming. cc: MD Olivier Fine MD
[2017-05-16] MEDS: FOLTX PO SCH (09:25)
[2017-05-16] MEDS: ALDACTONE PO SCH (09:25)
[2017-05-16] MEDS: RANEXA PO SCH ×2 (09:25→21:34)
[2017-05-16] MEDS: ASPIRIN PO SCH (09:25)
[2017-05-16] MEDS: LIPITOR PO SCH (09:25)
[2017-05-16] MEDS: COREG PO SCH ×2 (09:25→21:35)
[2017-05-16] MEDS: MAG-OX PO SCH ×2 (09:25→21:34)
[2017-05-16] MEDS: ROCEPHIN 1 GM/NS 1 GM/50 ML IVPB IV SCH (09:25)
[2017-05-16] MEDS: LASIX PO SCH (09:25)
[2017-05-16] MEDS: PLAVIX PO SCH (09:25)
[2017-05-16] MEDS: POTASSIUM CHLORIDE 20% LIQUID PO SCH ×2 (09:25→21:35)
[2017-05-16] MEDS: LOVENOX SUBQ SCH ×2 (10:56→22:55)
--- NOTE | 2017-05-16 15:04 | Diag Imaging Result Doc PS360 ---
EXAM: CHEST-2 VIEWS HISTORY: chf TECHNIQUE: COMPARISON: 05/14/2017 FINDINGS: Sternal wires are present. Heart is not enlarged. Interval improvement with decreased pulmonary edema. There are only tiny pleural effusions. These are smaller than on the prior exam. The lung bases are better aerated. There is a granuloma in the left base. IMPRESSION: Marked interval improvement with only minimal pulmonary edema remaining on the current study with trace pleural fluid. Electronically signed by Brett Cronin 05/16/2017 3:02 PM
[2017-05-16] MEDS: ZYRTEC PO SCH (21:35)
[2017-05-17] MEDS: NATRECOR 1.5 MG in NS 250 ML IV SCH (02:39)
[2017-05-17] MEDS: NITROGLYCERIN TOP SCH ×4 (05:20→22:19)
[2017-05-17] MEDS: CAPOTEN PO SCH ×3 (05:21→21:19)
[2017-05-17 05:31] LABS: MANUAL DIFF NEEDED? NO
[2017-05-17 05:41] LABS: BASO% 0.5 % (0.0-0.8); EOS# 0.72 X1000 (0.0-0.7); EOS% 5.6 % (0.0-10.0); HEMATOCRIT 41.3 % (42.0-52.0); HEMOGLOBIN 13.9 g/dL (14.0-18.0); IMM GRAN% 0.8 % (0.0-0.5); LYMPH# 2.64 X1000 (1.2-3.4); LYMPH% 20.5 % (20.5-51.1); MCHC 33.7 g/dL (33-37); MCV 94.9 FL (81-99); MONO# 1.07 X1000 (0.11-0.59); MONO% 8.3 % (1.7-9.3); NEUT% 64.3 % (42.2-75.2); PLT 411 X1000 (130-400); RBC 4.35 XMIL (4.7-6.1)
[2017-05-17 06:00] LABS: AGAP 11; BUN 27 mg/dL (8-22); CHLORIDE 99 mmol/L (98-107); COSMO 280; MAGNESIUM 2.4 mg/dL (1.5-2.7); SODIUM 137 mmol/L (136-145); TCO2 27 mmol/L (25-35)
--- NOTE | 2017-05-17 07:59 | PROGRESS NOTE ---
DATE: 05/17/2017 SUBJECTIVE: He had a pretty good night but he states he has urgency. He has to go the bathroom. He just cannot get to the bathroom in time. Never had trouble with this before. Also complaining of a little bit of bleeding from his right nostril but that seems to have resolved and probably from the nasal cannula. Urine output was 2.7 L. OBJECTIVE: General: He appears comfortable, breathing comfortably. Vital Signs: Temp 98.1 degrees, pulse 96 degrees, respirations 18, blood pressure 125/57. HEENT: Pupils are equal and round. Lungs: Clear in all lung pickard. Cardiovascular: Regular rhythm and rate without murmur or S3. Abdomen: Soft. Skin is warm and dry. Weight 172 pounds. LABORATORY DATA/DIAGNOSTICS: White count 12,900, hematocrit 41, platelet count 411,000. Chemistry: Sodium 137, potassium 5.0, chloride 99, BUN 27, creatinine 1.0, which is improved. Chest x-ray from yesterday: Marked interval improvement, with normal pulmonary edema remaining. So, he seems to be doing well. ASSESSMENT AND PLAN: 1. Acute non-ST- elevation myocardial infarction. On presentation with acute congestive heart failure as well. Dr. Kaur is following. Ischemia is probably in the territory of circumflex coronary artery. He has responded to diuresis and seems to be well compensated at this time. His strength is improving. Hopefully, can go home today. I did change him over to p.o. Lasix. 2. History of coronary artery disease, status post bypass surgery. He had recent echo. He has qzep-kp-ecvkseye degree of mitral and aortic regurgitation. No definite diastolic function. Moderate enlargement of the left ventricle. Bgyp-lf-gbgpvxca impairment of systolic function. Ejection fraction 40% to 45%. He has significant impairment in the inferior wall and a lesser degree in the posterior lateral segment. 3. Peptic ulcer disease, status post Billroth II. 4. Benign prostatic hypertrophy, urgency. I think he would benefit from some Flomax and so I will start him on some Flomax to see if that will help. 5. He did have a little bit of fever. Concerned about possible infection. I think we can stop his ceftriaxone. He may get to go home today. MEDICATIONS: He on spironolactone 25 mg a day, Ranexa ER 500 mg b.i.d., potassium chloride 40 mEq that he is getting b.i.d. I can go down to once a day, I think. Magnesium oxide I will stop. He will be on Lasix 40 mg p.o. q.a.m. Plavix 75 mg a day, Zyrtec 10 mg at bedtime, Coreg 6.25 mg q.12 hours, Capoten 12.5 mg q.8 hours, Lipitor 10 mg a day, aspirin 162 mg daily. cc: Olivier Levy MD
[2017-05-17] MEDS: ALDACTONE PO SCH (08:26)
[2017-05-17] MEDS: PLAVIX PO SCH (08:26)
[2017-05-17] MEDS: MAG-OX PO SCH ×2 (08:26→21:19)
[2017-05-17] MEDS: LASIX PO SCH (08:26)
[2017-05-17] MEDS: FOLTX PO SCH (08:26)
[2017-05-17] MEDS: COREG PO SCH ×2 (08:26→21:19)
[2017-05-17] MEDS: FLOMAX PO SCH (08:26)
[2017-05-17] MEDS: KLOR-CON PO SCH (08:26)
[2017-05-17] MEDS: RANEXA PO SCH ×2 (08:26→21:20)
[2017-05-17] MEDS: LIPITOR PO SCH (08:26)
[2017-05-17] MEDS: ASPIRIN PO SCH (08:26)
--- NOTE | 2017-05-17 08:38 | PROGRESS NOTE ---
DATE: 05/17/2017 CHIEF COMPLAINT: Shortness of breath. SUBJECTIVE: Mr. Polanco is feeling definitely better as far as his breathing. His chest x-ray has cleared up quite a bit. OBJECTIVE: Vital signs: His blood pressure is 108/55, temperature 98.2, pulse 88, and respirations 17. General: He is awake, alert, and follows commands. HEENT: Unremarkable. Respiratory: The chest sounds very clear to auscultation and percussion. Cardiac: Heart sounds are regular and rhythmic. I do not hear a gallop or murmur. Abdomen: Soft. No masses. No hepatomegaly. Extremities: The extremities show no edema. Neurological: He moves all extremities. LABORATORY DATA: Blood work shows a sodium of 137, potassium 5, BUN 27, and creatinine 1. His hemoglobin is 13.9. Platelet count is 411,000. IMPRESSION: 1. Patient presented with a non-ST elevation myocardial infarction which became complicated by acute heart failure systolic dysfunction. 2. Previous coronary bypass surgery. 3. Patient is complaining of urinary incontinence after his Swan catheter was removed. RECOMMENDATION: At this point in time I would probably continue the present therapy for another 24 hours. I have discussed with him my personal bias regarding his condition. I believe he should have a heart catheterization chiefly to make sure that his vein graft to the LAD system is patent and not compromised. I do not believe that his circumflex system can be helped based on the previous information that we have regarding his coronary anatomy. I explained to him the benefits, risks, and complications. At this time he is being bothered by the urinary incontinence. I will discuss this with Dr. Olivier Levy and further advise will be forthcoming. cc: MD Olivier Fine MD
[2017-05-17] MEDS: LOVENOX SUBQ SCH ×2 (10:39→22:19)
[2017-05-17] MEDS: ZYRTEC PO SCH (21:20)
[2017-05-18] MEDS: NITROGLYCERIN TOP SCH ×4 (05:17→22:06)
[2017-05-18] MEDS: CAPOTEN PO SCH ×3 (05:17→21:57)
--- NOTE | 2017-05-18 08:32 | PROGRESS NOTE ---
DATE: 05/18/2017 SUBJECTIVE: He had a good night. Breathing comfortably. No complaints of chest pain. PHYSICAL EXAMINATION: Vital Signs: Temperature 97.8 pulse 90, respirations 18, blood pressure 107/64. HEENT: The pupils were equal and round. Lungs: Are clear in all lung pickard. Cardiovascular Examination: Regular rhythm and rate without murmur or S3. Abdomen: Soft. Skin: Is warm and dry. Is and Os: Urine output 1700 mL. LAB: Reviewed from yesterday. Hematocrit stable. Serum creatinine has come down to 1 again, baseline, which is good. ASSESSMENT AND PLAN: 1. Presented with non-ST elevation myocardial infarction. This was complicated by acute heart failure, systolic dysfunction. Dr. Kaur is pondering a heart catheterization today. I think he would be ready for it to look at his left anterior descending venous graft. 2. Status post coronary artery bypass grafting. 3. Urinary incontinence after his Swan catheter was removed but that has improved. 4. History of peptic ulcer disease, status post Billroth-II. 5. Benign prostatic hypertrophy. Aware. 6. He is off of antibiotics. No further sign of fevers. His white count is normal. His creatinine is 1. Reviewed his orders. I do not see any change at this point. Anticipate heart catheterization today. cc: Olivier Levy MD
[2017-05-18] MEDS: FLOMAX PO SCH (08:39)
[2017-05-18] MEDS: ASPIRIN PO SCH (08:39)
[2017-05-18] MEDS: PLAVIX PO SCH (08:39)
[2017-05-18] MEDS: LIPITOR PO SCH (08:40)
[2017-05-18] MEDS: RANEXA PO SCH ×2 (08:40→21:58)
[2017-05-18] MEDS: FOLTX PO SCH (08:40)
[2017-05-18] MEDS: ALDACTONE PO SCH (08:40)
[2017-05-18] MEDS: LASIX PO SCH (08:40)
[2017-05-18] MEDS: MAG-OX PO SCH ×2 (08:40→21:57)
[2017-05-18] MEDS: COREG PO SCH ×2 (08:40→21:57)
[2017-05-18] MEDS: KLOR-CON PO SCH (08:40)
[2017-05-18] MEDS: LOVENOX SUBQ SCH ×2 (11:01→22:06)
[2017-05-18] MEDS: MUCOMYST 20% PO SCH ×2 (13:13→21:58)
[2017-05-18] MEDS ORDERED: SODIUM BICARBONATE 8.4% 150 MEQ in D5W 1,000 ML IV SCH (18:00)
[2017-05-18] MEDS: ZYRTEC PO SCH (21:58)
[2017-05-19] MEDS: CAPOTEN PO SCH ×3 (05:06→21:06)
[2017-05-19] MEDS: NITROGLYCERIN TOP SCH ×4 (05:06→23:38)
[2017-05-19 05:53] LABS: INR 1.05; PROTIME 11.1 Seconds (9.2-11.7)
[2017-05-19 06:10] LABS: HEMATOCRIT 35.4 % (42.0-52.0); HEMOGLOBIN 11.8 g/dL (14.0-18.0); MCH 32.5 PG (27-31); MCHC 33.3 g/dL (33-37); MCV 97.5 FL (81-99); MPV 9.2 FL (7.4-10.4); RBC 3.63 XMIL (4.7-6.1)
[2017-05-19 06:22] LABS: AGAP 12; BUN 26 mg/dL (8-22); CHLORIDE 98 mmol/L (98-107); COSMO 281; MAGNESIUM 2.2 mg/dL (1.5-2.7); POTASSIUM 4.2 mmol/L (3.5-5.1); SODIUM 138 mmol/L (136-145); TCO2 28 mmol/L (25-35)
[2017-05-19] MEDS: ALDACTONE PO SCH (08:02)
[2017-05-19] MEDS: LIPITOR PO SCH (08:02)
[2017-05-19] MEDS: MUCOMYST 20% PO SCH ×2 (08:02→21:07)
[2017-05-19] MEDS: PLAVIX PO SCH (08:02)
[2017-05-19] MEDS: MAG-OX PO SCH ×2 (08:02→21:06)
[2017-05-19] MEDS: ASPIRIN PO SCH (08:02)
[2017-05-19] MEDS: RANEXA PO SCH ×2 (08:02→21:06)
[2017-05-19] MEDS: KLOR-CON PO SCH (08:02)
[2017-05-19] MEDS: FLOMAX PO SCH (08:02)
[2017-05-19] MEDS: COREG PO SCH ×2 (08:02→21:06)
[2017-05-19] MEDS: FOLTX PO SCH (08:02)
--- NOTE | 2017-05-19 08:19 | PROGRESS NOTE ---
DATE: 05/19/2017 SUBJECTIVE: He had a good night. No chest pain. Breathing comfortably. Plan is for heart catheterization this morning. OBJECTIVE: Temperature 98.7 degrees, pulse 87, respirations 16, blood pressure 104/53. Lungs are clear in all lung pickard. Cardiovascular: Regular rhythm and rate without murmur or S3. Abdomen is soft. Skin is warm and dry. Urine output 1300 mL. LABORATORY DATA: Reviewed from this morning, white count 11,000. Hematocrit 35, platelet count 310,000. Chemistry: Sodium 138, potassium 4.1, chloride 98. BUN 26, creatinine 1.1. ASSESSMENT AND PLAN: 1. He presented with bag-QD-ztavisnjy myocardial infarction/ischemia. Plan is to do a heart catheterization with today per Dr. Kaur. He is doing much better. Breathing comfortably. Well compensated. 2. Status post coronary artery bypass grafting. 3. Urinary incontinence. Swan catheter, which is improved. Swan catheter out. 4. History of peptic ulcer disease, status post Billroth-II. 5. Benign prostatic hypertrophy. We had put him on some empiric antibiotics. He is off now. Hopefully, he can go home today after catheterization. We will see what results show. On review of his orders, I do not see any change at this point. cc: Olivier Levy MD
[2017-05-19] MEDS ORDERED: HEPARIN 1000 UNITS/NS 2,000 UNIT/1,000 ML IV.SOLN ONE (08:20)
[2017-05-19] MEDS ORDERED: NITROGLYCERIN ONE (08:21)
[2017-05-19] MEDS ORDERED: VERSED ONE (09:47)
[2017-05-19] MEDS ORDERED: DEMEROL ONE (09:47)
[2017-05-19] MEDS ORDERED: CLAVE PUMP SET NO FILTER 12260 ONE (09:48)
[2017-05-19] MEDS ORDERED: NS 1,000 ML ONE (09:48)
[2017-05-19] MEDS ORDERED: CLAVE TWINSITE 32 IN 11959 ONE (09:50)
--- NOTE | 2017-05-19 11:39 | CARDIAC CATH REPORT ---
DATE: 05/19/2017 PROCEDURES PERFORMED: 1. Left heart catheterization. 2. Selective coronary angiogram. 3. Left ventriculogram. 4. Opacification of vein graft to the left anterior descending. 5. Opacification of right femoral artery with deployment of 6-Egyptian Angio-Seal device. HISTORY: This is an 81-year-old male with previous coronary bypass surgery, presenting to the hospital with sudden onset of shortness of breath. He demonstrated positive cardiac enzymes indicating [id number] myocardial infarction. Wall motion abnormality noted at the level of the inferior posterior wall. The patient was stabilized medically and prior to discharge, we recommended a left heart catheterization to confirm coronary anatomy and then decide if he would benefit from revascularization. Benefits, risks and complications were discussed with him and the . They understood and requested to proceed. Because of marginal renal function, we put the patient on IV bicarbonate overnight and Mucomyst to protect the kidneys. Visipaque was used as a contrast agent. DESCRIPTION OF PROCEDURE: The patient came into the cardiac laboratory veterinarian in the fasting state. The right groin was prepped and draped in a sterile fashion and anesthetized with lidocaine 1%. He received 1 mg of Versed and 25 mg of Demerol for sedation. The groin was infiltrated with lidocaine 1%. A 6-Egyptian was inserted in the right femoral artery by following the modified Seldinger technique. Using 6-Egyptian 4 left and right Lib[place] catheters, the left and right coronary arteries were sequentially opacified in multiple projections. Then using the right Lib[place] catheter, the vein graft to the LAD was opacified. Then using the same catheter, the aortic valve was negotiated. Left ventricular pressure was determined. Left ventriculogram was performed in the 60 degree MEXICAN projection and 30 degree MAGANA projection by hand injection. At the end of the procedure, the right femoral artery was opacified. An Angio-Seal device was deployed successfully. The patient tolerated the procedure well without any obvious complications. SUMMARY OF HEMODYNAMIC FINDINGS: Central aortic pressure is 114/54. Left ventricular pressure is 114/8. Post LV gram, the LVEDP did not change. This indicates normal hemodynamics. SUMMARY OF ANGIOGRAPHIC FINDINGS: 1. Left main coronary artery: This vessel appears to be grossly within normal range. It divides into LAD and circumflex. 2. Left anterior descending coronary artery: This vessel is occluded at its ostium. The remaining portion of the LAD is visualized through injection of the vein graft. 3. Circumflex coronary artery: The circumflex coronary artery is a dominant vessel. It gives rise to a tiny high lateral branch followed by a moderate size lateral vessel. Immediately thereafter, the LAD shows a long segment of multiple stenoses, the worst one appears to be 90%, it appears to be calcific. More distally, the circumflex seems to divide into 2 terminal vessels, one is a posterolateral branch, the other one is a posterior descending branch. 4. Right coronary artery: The right coronary artery is a small nondominant structure that is completely occluded after giving rise to a tiny atrial branch. 5. Vein graft to LAD: This vessel is patent and it shows a 30% eccentric plaque at the junction of the middle with the distal third. This is a nonocclusive plaque that appears to be smooth. The LAD is perfused antegrade and retrograde by this graft. The terminal LAD is a small apical segment. The more proximal vessel shows a moderate stenosis prior to giving rise to a large diagonal. The LAD appears to be diffusely diseased. LEFT VENTRICULOGRAM: Left ventriculogram in the 30 degree MAGANA projection and 60 degree MEXICAN projection reveals enlargement of the left ventricular chamber with mild impairment of function. Ejection fraction is estimated at 45% with impairment of the inferolateral segment of the left ventricle. The anterior apical segment looks good as far as contractility. No mitral regurgitation was noted. OPACIFICATION OF RIGHT FEMORAL ARTERY: The right femoral artery is unremarkable. Angio-Seal device was deployed. FLUOROSCOPY: Fluoroscopy reveals sternal wires and dense calcification of the coronary vessels. The LAD and circumflex are densely calcified. CONCLUSIONS: 1. Severe 3-vessel coronary artery disease. There is total occlusion of the LAD at the ostium, severe stenosis of the circumflex in its mid segment at multiple levels. There is total occlusion of the nondominant right coronary artery. 2. Patent vein graft to LAD with a 30% eccentric stenosis in its mid to distal segment. 3. Mildly impaired left ventricular function. Ejection fraction is 45% with inferolateral impairment. 4. No mitral regurgitation. No aortic stenosis. Unremarkable right femoral artery. RECOMMENDATIONS: We will proceed with medical therapy at this time. We will obtain a second opinion from utilities and maintenance supervisor. We will follow the patient closely. Of note, his hemodynamics are good. He is not in pulmonary edema. cc: Aaron MD Olivier Lora MD
[2017-05-19] MEDS: LASIX PO SCH (12:52)
[2017-05-19] MEDS: LOVENOX SUBQ SCH ×2 (12:52→23:38)
[2017-05-19] MEDS: ZYRTEC PO SCH (21:06)
[2017-05-20] MEDS: CAPOTEN PO SCH (04:47)
[2017-05-20] MEDS: NITROGLYCERIN TOP SCH (04:47)
[2017-05-20 07:26] VITALS: BP 131/57
[2017-05-20] MEDS: ALDACTONE PO SCH (08:23)
[2017-05-20] MEDS: MAG-OX PO SCH (08:23)
[2017-05-20] MEDS: RANEXA PO SCH (08:23)
[2017-05-20] MEDS: KLOR-CON PO SCH (08:23)
[2017-05-20] MEDS: LASIX PO SCH (08:23)
[2017-05-20] MEDS: COREG PO SCH (08:23)
[2017-05-20] MEDS: ASPIRIN PO SCH (08:23)
[2017-05-20] MEDS: FLOMAX PO SCH (08:24)
[2017-05-20] MEDS: PLAVIX PO SCH (08:24)
[2017-05-20] MEDS: LIPITOR PO SCH (08:24)
[2017-05-20] MEDS: FOLTX PO SCH (08:24)
--- NOTE | 2017-05-20 09:08 | DISCHARGE SUMMARY ---
ADMISSION DATE: 05/12/2017 DISCHARGE DATE: 05/20/2017 HISTORY OF PRESENT ILLNESS: The patient was admitted on 05/12/2017 in the evening. He stated that for a couple of days he noticed increased shortness of breath, having more trouble, struggled breathing in the emergency room. He had significant hypoxia and was put on BiPAP. Blood gases: pH was 7.35, pCO2 was 38, and pO2 was 80. That was on 100% FiO2. He was using extrathoracic muscles for breathing and moving air. He has had significant orthopnea and paroxysmal nocturnal dyspnea. He denied any specific chest pain, was just kind of hurting all over. PAST MEDICAL HISTORY: 1. Coronary artery disease. He started having chest pain and shortness of breath with exertion back in 1977, underwent stress test, eventually had a heart catheterization done in [place], treated at [facility]. He ended up having one-vessel LAD, I believe there was venous graft in 1977. He quit smoking at that time. Prior to that time, he smoked quite a bit. He felt pretty well until 1979 he started having chest pain, intrascapular pain again, and heart catheterization, told him he had small vessel disease, needed to treat him medically. I think he has had another heart catheterization about 10 years ago and then had a repeat heart catheterization on this admission. 2. 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 3. He has had his gallbladder out. HOSPITAL COURSE: 1. The patient was managed medically, diuresed aggressively, and showed steady improvement in his breathing. He had a Swan catheter, and when we took the Swan catheter out, he had a little bit of trouble with incontinence, but that resolved fairly quickly. An echocardiogram was performed on 05/13/2017. Dr. Kaur, playground official, was consulted. 1. He had a moderately enlarged left ventricle, mild to moderate impairment of systolic function, ejection fraction 40% to 45%. Inferior wall, to a lesser degree posterior wall had some hypokinesis consistent with ischemic disease. 2. Mild to moderate degree of mitral and aortic regurgitation. 3. No definite diastolic dysfunction. 4. Pulmonary pressures were grossly in normal range. He underwent heart catheterization on 05/09/[address] Kaur. Central aortic pressures were 114/54. Left ventricle pressure 114/8. His LVEDP did not change. Normal hemodynamics grossly. 1. Left main coronary artery: The vessel appeared to be grossly within normal range, divides into LAD and circumflex. 2. Left anterior descending coronary: The vessel was occluded at its ostium. The remaining portion of the LAD visualized through the injection of the venous graft. The LAD showed a long segment of multiple stenoses, worst appears to be 90%. 3. Circumflex coronary artery. Circumflex is a dominant vessel, gives rise to a high lateral branch followed by moderate-sized lateral vessels. CONCLUSION: 1. Severe 3-vessel disease. Total occlusion of the LAD at the ostium. Severe stenosis of the circumflex in its mid segment at multiple levels. There is total occlusion of the nondominant right coronary artery. 2. Patent venous graft to LAD, 30% eccentric stenosis in the mid to distal segment. 3. Mildly impaired left ventricular function. Ejection fraction was 45% with inferolateral impairment. He felt much better. We felt he could go home on 05/20/2017. Will follow him up in 2 weeks and have him follow up with Dr. Kaur in a couple of weeks. DISCHARGE MEDICATIONS: He will be on aspirin 162 mg a day, Lipitor 10 mg a day, Capoten 12.5 mg three times a day, Coreg 6.25 mg twice a day, Plavix 75 mg a day, Foltx one a day, and he will take Lasix 40 mg p.o. each morning. I will give him Klor-Con 20 mEq daily, Ranexa 500 mg b.i.d., Aldactone 25 mg a day, Flomax 0.4 mg daily. His last set of electrolytes looked good. Sodium was 138, potassium 4.2, chloride 98, BUN 26, creatinine 1.1. cc: Olivier Levy MD
--- NOTE | 2017-05-20 11:06 | PROGRESS NOTE ---
DATE: 05/20/2017 SUBJECTIVE: Patient reports he feels well. He has no complaints of swelling or pain in the right groin area. PHYSICAL EXAMINATION: Vital signs: Afebrile. Heart rate 80, blood pressure 131/57. General: No acute distress. Cardiovascular: He is in a regular rate and rhythm. No murmurs. No S3. No lower extremity edema. Right groin has no evidence of any bruit or swelling. Chest: Clear bilaterally. No increased work of breathing. Abdomen: Soft, nontender, nondistended. PERTINENT DATA: Magnesium of 2.2 today, otherwise no laboratories. His heart catheterization results were reviewed from yesterday. ASSESSMENT: Multi-vessel coronary disease. PLAN: Per Dr. Kaur's note yesterday we will continue with medical therapy. The patient is not having any anginal complaints. He has a followup with Dr. Kaur on June 29 at 11 a.m. to discuss further medical therapy. cc: MD Olivier Poole MD
== END 2017-05-20 10:54 | disposition home health service (06) ==
LOC: ED 17:00 → 3S 19:53
PROVIDERS: ADMIT Emergency Medicine; ATTEND Emergency Medicine